=== PATIENT | female | born 1995 | race Caucasian/White ===

== ENCOUNTER 2021-12-28 15:18 | Outpatient (REF) | payer OTHER, SELFPAY ==
[2021-12-28 16:18] LABS: COVID-19 Test Negative (Negative); IDNOW Serial# 16C4AD1C
== END 2021-12-28 15:19 | disposition home or self-care (01) ==
LOC: HO.LAB 15:18
PROVIDERS: Visit Provider Internal Medicine
DX: Z20.822 Contact with and (suspected) exposure to COVID-19 (principal)
CPT/HCPCS: 87635; C9803

== ENCOUNTER 2022-11-14 11:48 | Emergency (ER) | payer OTHER, SELFPAY ==
[2022-11-14 11:51] VITALS: BP 150/80; PULSE 75; RESP 20; TEMP 36.8; O2SAT 97; BMI 37.9
[2022-11-14 12:02] VITALS: BP 155/110
--- NOTE | 2022-11-14 12:11 | PC.NURSE ---
Pt arrived via EMS, A&O X3, stated she has a Hx of anxiety and chronic fainting. VS WNL, denies any pain or discomfort at this time.
--- NOTE | 2022-11-14 13:04 | ED_ITS ---
HPI - General Adult General Chief complaint: General Medical Stated complaint: HIGH BP 127/84 PER EMS Time Seen by Provider: 11/14/22 12:56 Source: patient Mode of arrival: EMS Limitations: no limitations History of Present Illness HPI narrative: Patient comes emergency room via EMS after having a panic attack and having syncopal episode. Patient states that she receive a bad phone call earlier today which triggered her anxiety, then she went into a panic attack. Patient called her friend and was hoping that she would calm down. The patient reports that she was hyperventilating, and passed out, patient's friend who was still on the phone call 911. Patient states that she has had multiple panic attacks in the past and syncopal episodes have happened after hyperventilating. Patient states that she did not hit her head, did not lose consciousness, not on blood thinners. When EMS arrived, patient's blood pressure was high, patient initially declined to come to the hospital but she was convinced by the paramedics. When patient arrived, patient's blood pressure was 127/84. At this time, patient states she is asymptomatic, feeling well. Related Data Allergies Allergy/AdvReac Type Severity Reaction Status Date / Time cat dander [CATS] Allergy Unknown UNKNOWN Unverified 02/19/20 18:57 nickel [NICKEL] Allergy Unknown HIVES Unverified 02/19/20 18:57 Review of Systems Review of Systems: Constitutional : No Weight loss, No Fever, No Chills, No Night Sweats, No Fatigue, No Malaise ENT/Mouth : No Hearing loss, No Ear Pain, No Nasal Congestion, No Sinus Pain, No Hoarseness, No sore throat, No Rhinorrhea, No Swallowing Difficulty Eyes: No Eye Pain, No Swelling, No Redness, No Foreign Body, No Discharge, No Vision Changes Cardiovascular : No Chest Pain, No SOB, No Dyspnea on Exertion, No Orthopnea, No Edema, No Palpitations Respiratory : No Cough, No Sputum, No Wheezing, No Smoke Exposure, No Dyspnea Gastrointestinal : No Nausea, No Vomiting, No Diarrhea, No Constipation, No abdominal Pain, No Hematochezia, No Melena Genitourinary : no irregular bleeding, No Dysuria, No Urinary Frequency, No Hematuria, No Urinary Incontinence, No Urgency, No Flank Pain, No Urinary Flow Changes, No Hesitancy Musculoskeletal : No joint pain, No Myalgias, No Joint Swelling Skin : No Skin Lesions, No rash Neuro : No Weakness, No Numbness, No Paresthesias, No Loss of Consciousness, No Dizziness, No Headache Psych : Earlier today had a panic attack, no Depression, No SI/HI/AH/VH, No Social Issues, Heme/Lymph: No Bruising, No Bleeding,No Lymphadenopathy Endocrine : No Polyuria, No Polydipsia, No Temperature Intolerance [facility] Past Medical History Medical History (Updated 11/14/22 @ 13:09 by Claudia Seaman MD) Generalized anxiety disorder with panic attacks Social History Social History Advance Directives: No Advance Directives Information Provided: No Physical Exam ED Vital Signs: Vital Signs - 24 hr 11/14/22 11:51 Temperature 98.3 F Pulse Rate 75 Respiratory Rate 20 Blood Pressure 150/80 H Pulse Oximetry 97 Oxygen Delivery Method Room Air BMI result Body Mass Index 37.9 Const Other: Appearance: Alert. Oriented X3. No acute distress. Eyes: Pupils equal, round and reactive to light. ENT: Pharynx normal. Neck: Normal inspection. Neck supple. No lymph nodes noted. No crepitus CVS: Normal heart rate and rhythm. Pulses normal. Normal S1 and S2 Respiratory: No respiratory distress. Breath sounds normal. No Wheezing. No rales Abdomen: Soft and nontender. No rigidity. No distention. Skin: Skin warm and dry. Normal skin color. Normal skin turgor. Extremities: No lower extremity edema. No Lacerations. No Rash Neuro: Oriented X 3. No motor deficit. No sensory deficit. Moving all extremities. No slurred speech. CN 2 through 12 grossly intact Psych: calm, cooperative, normal affect Medical Decision Making Medical Decision Making MDM Narrative: -patient states that she feels completely back to baseline, denies any chest pain or shortness of breath. No anxiety. -I checked the patient's blood pressure, it was 116/56, patient feeling well. 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 Patient is willing to get an EKG prior to discharge. -patient's syncopal episode likely secondary to hyperventilating from the panic attack. -EKG my interpretation: Sinus bradycardia, heart rate 57, no ST segment depression revision, no T-wave inversion, QTC 434 Discharge Plan Discharge Clinical Impression: Panic attack, Hyperventilation-induced syncope Patient Disposition: Home, Self-Care Instructions: Panic Attack (ED) Additional Instructions: Please follow-up with your primary care physician tomorrow. If you have any worsening or new symptoms, please return to the emergency room or call 911
--- NOTE | 2022-11-15 12:12 | ECG_ITS ---
Test Reason : HYPTERSION Blood Pressure : / mmHG Vent. Rate : 057 BPM Atrial Rate : 057 BPM P-R Int : 154 ms QRS Dur : 088 ms QT Int : 446 ms P-R-T Axes : 006 051 038 degrees QTc Int : 434 ms Sinus bradycardia Otherwise normal ECG When compared with ECG of 27-FEB-2019 18:06, No significant change was found Referred By: Claudia Seaman Electronically Signed By:OSVALDO ZAIDI MD
== END 2022-11-14 14:34 | disposition home or self-care (01) ==
PROVIDERS: Emergency Provider Emergency Medicine
DX: F41.0 Panic disorder [episodic paroxysmal anxiety] (principal); R55 Syncope and collapse; R06.4 Hyperventilation; I10 Essential (primary) hypertension; Z79.899 Other long term (current) drug therapy
CPT/HCPCS: 93005; 99283

== ENCOUNTER 2025-03-09 13:12 | Outpatient (AMB) | payer OTHER, SELFPAY ==
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
[2025-03-09 13:19] VITALS: BP 138/78; PULSE 90; RESP 16; O2SAT 95; BMI 37.6
--- OUTSIDE RECORDS SUMMARY | 2025-03-09 15:39 | XMS_ITS ---
Author Name [facility] Organization Unknown Care Team Organization Name Specialty Phone Email Start Date End Da te [facility] JOE YE Primary Care [email or web address] 02/08/[address] [facility] Josue Alexander Primary Care 08/09/202201/[address] [facility] Bakari Santiago Primary Care 04/11/2022 4
--- OUTSIDE RECORDS SUMMARY | 2025-03-09 15:39 | XMS_ITS | Clinical Summary ---
Author Organization [address] 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 10/08/2023 Active EPINEPHrine (EpiPen 2-Hieu) 0.3 mg/0.3 mL injection Inject 0.3 mL (0.3 mg total) as directed if needed for anaphylaxis. 10/06/2022 Active ibuprofen (ADVIL,MOTRIN) 600 mg tablet Take 1 tablet (600 mg total) by mouth every 8 (eight) hours if needed for mild pain. 10/08/2023 Active propranoloL (INDERAL) 10 mg tablet Take 1 tablet (10 mg total) by mouth 1 (one) time each day if needed. ANXIETY 02/21/2023 Active sucralfate (CARAFATE) 100 mg/mL suspension Take 10 mL (1 g total) by mouth 4 (four) times a day (with meals and nightly). Take 1 hour before meals and at bedtime 1200 mL 11 04/09/2024 04/09/20 25 Active cetirizine (ZyrTEC) 10 mg capsuleIndicati ons:Seasonal allergic rhinitis due to pollen Take 1 capsule (10 mg total) by mouth 1 (one) time each day. 90 capsule 1 09/04/2024 Active cholecalciferol (VITAMIN D-3) 50 mcg (2,000 unit) tablet Take 1 tablet (2,000 Units total) by mouth 1 (one) time each day. 90 tablet 1 09/04/2024 Active pantoprazole (PROTONIX) 20 mg EC tablet TAKE 1 TABLET BY MOUTH EVERY DAY 90 tablet 1 09/16/2024 Active PARoxetine (PAXIL) 40 mg tablet Take 1 tablet (40 mg total) by mouth 1 (one) time each day in the morning. Active hydrOXYzine HCL (ATARAX) 10 mg tablet Take 1 tablet (10 mg total) by mouth 3 (three) times a day. 30 tablet 2 03/03/2025 Active Active Problems Problem Noted Date Diagnosed Date Syncope 11/14/2024 Assessment & Plan (11/18/2024 1:04 PM EDT): Patient with possible syncope. Etiology unclear though I think it is truly vasovagal syncope based on the circumstances and the characteristics of the events. Patient will be set up for a 30-day monitor rather than a Holter monitor to see if we can capture any of these episodes on EKG tracing while it happens. In the meantime she has been told to avoid noxious stimuli or painful stimuli since it may trigger a vagal event. But the majority of her episodes have characteristics that are most consistent with vasovagal syncope which I explained to her just needs to be treated by avoiding situations where of pain discomfort overheating and to stay well- hydrated wear compression socks Orders: Ambulatory referral to Cardiology Cardiac event monitor; Future Transthoracic echocardiogram (TTE) complete with PRN contrast, bubble, strain, and 3D order panel; Future Obesity (BMI 35.0-39.9 without comorbidity) 08/2024 Bipolar affective disorder (CMS/HCC V24, CMS/HCC V28) 03/17/2024 Overview (03/17/2024): Jimenez Sosa: Shannan Cervantes GERD (gastroesophageal reflux disease) Overview (03/17/2024): Prilosec Mood disorder ([facility]/HCC V24) 03/17/2024 Overview (03/17/2024): high risk behaviors with sex and drugs As of 11/14 taking Prazosin (Minipress) for nightmares, Zoloft, Trazodone, Singulair, Benadryl and Prilosec PTSD (post-traumatic stress disorder) 03/17/2024 Overview (03/17/2024): inpt psych hosp 10/13 at [facility] Class 2 obesity due to exces s calories with body mass index (BMI) of 37.0 to 37.9 in adult 03/17/2024 Elevated LDL cholesterol level 10/09/2022 Subclinical hyperthyroidism 10/09/2022 Marijuana use, continuous 10/06/2022 Passive suicidal ideations 10/06/2022 DUB (dysfunctional uterine bleeding) 09/12/2018 Insomnia 09/12/2018 ADHD (attention deficit hyperactivity disorder) 02/24/2010 Overview (03/17/2024): No longer on meds for ADHD meds, on Goldonna 11/13 Allergic rhinitis 02/24/2010 Overview (03/17/2024): Singulair and benadryl Encounters Date Type Department Care Team Description 03/03/2025 2:30 PM EDT Office Visit Adult Medicine [address] [phone] Mar Amor PA Vasovagal syncope (Primary Dx); Bipolar affective disorder, current episode mixed, current episode severity unspecified (CMS/HCC V24, CMS/HCC V28); Anxiety and depression 12/29/2024 2:30 PM EDT Office Visit Adult [address] [phone] Josue Alexander MD Vasovagal syncope (Primary Dx); Gastroesophageal reflux disease without esophagitis; Bipolar affective disorder, current episode mixed, current episode severity unspecified (CMS/HCC V24, [facility] V28) 12/09/2024 7:00 AM EDT Ancillary Procedure [facility] [address] [facility] [address] [place] [address] Syncope, unspecified syncope type; Syncope and collapse from Last 3 Months Immunizations Immunization Administration Dates Next Due DTaP (Infanrix) 6wks to less than 7yo ,01/02/1998,03/04/1997,09/02,1996 HPV, Quadrivalent 02/28/2011,02/24/2010,02/23/20 09 Hepatitis B Pediatric (Enger ix B; Recombivax HB) to less than 20 yo 06/23/1997,03/23/1997,1996 Influenza trivalent, 0.5mL, preservative free (Fluarix; FluLaval; Fluzone) ages 6mo and older (Afluria) 3 years and older 02/18/2024,07/19/2017,02/28/2011,02/24,02/22/2009,03/19/2008,03/05/2007 MMR, measles mumps and rubel la Live (Priorix; M-M-R II) 12mo and older 08/06/2001,11/16/1997 Meningococcal MCV4P 02/22/2009,07/19/2007 OPV 08/06/2001, 8,1996,08/02 Pfizer SARS-CoV-2 COVID-19, mRNA, LNP-S, preservative free 08/25/2021,08/04/2021 Pneumococcal conjugate 20 va lent (Prevnar 20, PCV 20) 2mo and older 02/18/2024 Tdap Tetanus diptheria acell ular pertussis (Boostrix; Adacel) 7yo and older 09/08/2016,11/02/2015,02/22/2009 Varicella live (Varivax) 12m o and older 01/07/2008,11/16/1997 Surgical History Surgery Date Site/Laterality Comments SECTION PROCEDURE: HISTORICAL DELIVERY; COMMENT: 12/14/2015 and 10/28/2016 SKIN GRAFT Medical History Medical History Date Comments Lack of normal physiological development, unspecified DX:Lack of normal physiologi chace development, unspecified; COMMENT: 01/09 Eczema DX:Eczema Bipolar affective disorder ([facility] V24, [facility] V28) ? Borderline DX:Bipolar affective disord er ([facility]); COMMENT: Jimenez Sosa: Shannan Cervantes ADHD (attention deficit hyperactivity disorder) DX:ADHD (attention deficit hyperactivity disorder); COMMENT: Adderall Clonidine Hospital admission due to so cial situation ? reason 07/16 DX:Hospital admission due to social situation; COMMENT: admitted at [facility] Mood disorder ([facility] V24) ODD DX:M ood disorder ([facility]); COMMENT: high risk behaviors with sex and drugs PTSD (post-traumatic stress disorder) DX:PTSD (post-traumatic stre ss disorder); COMMENT: inpt psych hosp 10/13 at [facility] High-risk sexual behavior per psych report DX:Hi gh-risk sexual behavior GERD (gastroesophageal reflu x disease) DX:GERD (gastroesophageal re flux disease); COMMENT: Prilosec Allergic rhinitis 02/24/2010 DX:Allergic rh initis; COMMENT: Singulair and benadryl Asthma 02/24/2010 DX:Asthma; COMME NT: On Singulair DUB (dysfunctional uterine bleeding) 09/12/2018 DX:DUB (dysfunctional uterin e bleeding) Hematochezia 02/24/2010 DX:Hematochezia History of syncope 03/16/2011 DX:History of syncope Insomnia 09/12/2018 DX:Insomnia Syncope Severe obesity (BMI 35.0-39. 9) with comorbidity ([facility] V24, [facility] V28) Family History Medical History Relation Name Comments Restless legs syndrome Father Colon cancer Mother Diabetes Mother Irritable bowel syndrome Mother htn Mother Other: adopted Other Relation Name Status Comments Father Mother Other Social History Tobacco Use Types Packs/Day Years Used Date Smoking Tobacco: Former Cigarettes Q uit: 2023 Smokeless Tobacco: Never Tobacco Cessation:Counseling Given: Not Answered Alcohol Use Standard Drinks/Week Comments Not Currently 0 (1 standard drink = 0.6 oz pur e alcohol) Housing Instability Answer Date Recorde d Are you worried that in the next 2 months you may not have stable housing? No 09/04/2024 Food Access & Nutrition Answer Date Rec orded Do you have access to a vari ety of food including fruits and vegetables? Yes 09/04/2024 Access to Healthcare Answer Date Record ed Within the last 3 months, ho w many times did you visit the emergency department for your medical care? 0 09/04/2024 Health Literacy Answer Date Recorded How often do you need to hav e someone help you when you read instructions, pamphlets, or other written material from your doctor or pharmacy? Never 09/04/2024 Caregiver: How often do you need to have someone help you when you read instructions, pamphlets, or other written material from your doctor or pharmacy? Not on file 09/04/2024 Financial Risk Answer Date Recorded How hard is it for you to pa y for the very basics like food, housing, medical care, and air conditioning / heating? Not very hard 09/04/2024 Transportation Answer Date Recorded Has the lack of transportati on kept you from meetings, work, or from getting things needed for daily living? No Has the lack of transportati on kept you from medical appointments or from getting medications? No 09/04/2024 Social Isolation Answer Date Recorded How often do you feel lonely or isolated from th ose around you? Never 09/04/2024 Food Risk Answer Date Recorded Within the past 12 months we worried whether our food would run out before we got money to buy more. Never true 09/04/2024 Within the past 12 months th e food we bought just didn't last and we didn't have money to get more. Never true 09/04/2024 Dependent Care Answer Date Recorded Do you need help finding or paying for care for your loved ones. For example, children's ministries director or elderly care for an older adult? No 09/04/2024 Education Answer Date Recorded Do you think completing more education or training, like finishing a GED, going to college, or learning a trade, would be helpful for you? N/A 09/04/2024 Employment and Income Answer Date Recor ded During the last four weeks, have you been actively looking for work? No 09/04/2024 Living Situation Answer Date Recorded What is your living situation? Unrecognized valu e 09/04/2024 Comments No Sex and Gender Information Value Date Recorded Sex Assigned at Not on file Legal Sex Female 11:29 PM EST Gender Identity Female 06/15/2023 10:38 AM EST Sexual Orientation Bisexual 06/15/2023 10 :38 AM EST Obstetrics History Last Filed Vital Signs Vital Sign Reading Time Taken Comments Blood Pressure 155/103 03/03/2025 2:51 PM EDT Pulse 88 03/03/2025 2:51 PM EDT Temperature 36.5 C (97.7 F) 03/03/2025 2:51 PM EDT Respiratory Rate 14 03/03/2025 2:51 PM EDT Oxygen Saturation 98% 11/18/2024 7:55 AM EDT Inhaled Oxygen Concentration - - Weight 113 kg (249 lb) 03/03/2025 2:51 PM EDT Height 170.2 cm (5' 7 ) 03/03/2025 2:51 PM EDT Body Mass Index 39 03/03/2025 2:51 PM EDT Plan of Treatment Upcoming Encounters Date Type Department Care Team (Late st Contact Info) Description 04/03/2025 8:40 AM EDT Office Visit [facility] [address] [place] [address] Lore Mendieta NP [address] [place] [address] [address] [place] [address] Health Maintenance Due Date Last Done Comments Hepatitis A Vaccines (1 of 2 - Risk 2-dose series) 2015 COVID-19 Vaccine ( season) 2025 08/25/2021, 08/04/2021 Influenza Vaccine (#1) 2025 , 07/19/2017, 02/28/2011, Additional history exists Social Influencers of Health Screening 09/04/2025 09/04/2024 Cervical Cancer Screening: Pap Smear 12/14/2025 12/14/2022, 12/14/2022 DTaP,Tdap,and Td Vaccines (9 - Td or Tdap) 09/08/2026 09/08/2016, 11/02/2015, 02/22/2009, Additional history exists Cholesterol Screening (Lipid Panel) 02/17/2029 02/18/2024, 02/18/2024 RSV Immunization Adult Patients (1 - 1-dose 75+ series) 2071 Hepatitis B Vaccines Completed 06/23/1997, 03/23/1997, 1996 IPV Vaccines Completed 08/06/2001, 06/1997, 1996, Additional history exists MMR Vaccines Completed 08/06/2001, 11/16/1997 Varicella Vaccines Completed 01/07/2008, 11/16/1997 Meningococcal ACWY Vaccine Aged Out 02/22/2009, No longer eligible based on patient's age to complete this topic HPV Vaccines Completed 02/28/2011, 02/03, 02/22/2009 Pneumococcal Vaccine: Pediatrics (0 to 5 Years) and At-Risk Patients (6 to 49 Years) Aged Out 02/18/2024 No longer eligible based on patient's age to complete this topic Depression Screening Completed 09/04/2024, 03/13/20 HIV Screening Completed 09/04/2024, 03/05, 02/18/2024, Additional history exists Hepatitis C Screening Completed 09/04/2024, 024 HIB Vaccines Aged Out No longer eligi ble based on patient's age to complete this topic Meningococcal B Vaccine Aged Out No l onger eligible based on patient's age to complete this topic RSV Immunization Patients Under 20 months Aged Out No longer eligible based on patient's age to complete this topic Procedures Procedure Name Priority Date/Time Associated Diagnosis Comments TRANSTHORACIC ECHOCARDIOGRAM (TTE) COMPLETE Routine 12/09/2024 7:42 AM EDT Syncope, unspecified syncope type Syncope and collapse HEPATITIS C ANTIBODY Routine 09/04/2024 10:02 AM EDT Screen for STD (sexually transmitted disease) HIV 1, 2 ANTIBODY, P24 ANTIGEN WITH REFLEX TO DIFFERENTIATION Routine 09/04/2024 10:02 AM EDT Screen for STD (sexually transmitted disease) HM DEPRESSION SCREENING Routine 03/13/2024 LIPID PANEL Routine 02/18/2024 HM HPV Routine 12/14/2022 from Last 3 Months or Most Recently Relevant to Health Maintenance Results * TRANSTHORACIC ECHOCARDIOGRAM (TTE) COMPLETE (12/09/2024 7:42 AM EDT) Left Atrium Minor [place] 4.5 cm CV PACS Left Atrium Major [place] 5.0 cm CV PACS LA Area Sys (A2C) 17 cm2 CV PACS LA Area Sys (A4C) 16 cm2 CV PACS LA Volume (BP) 49 mL CV PACS RA Area 14.9 cm2 CV PACS RA 2D Volume 39 mL CV PACS AV Mean Gradient 2 mmHg CV PACS Ao VTI 21.0 cm CV PACS AV Peak Caden 1.0 m/s CV PACS AV Peak Gradient 4 mmHg CV PACS AV Area Continuity Equation 3.3 cm2 CV PACS AV Area Peak Velocity 3.3 cm2 CV PACS Aortic Sinus Valsalva 3.5 cm CV PACS Ascending Aorta 3.4 cm CV PACS IVC Proximal 1.2 cm CV PACS IVSD 0.9 0.6 - 0.9 cm CV PACS LVIDD 4.5 3.8 - 5.2 cm CV PACS LVIDS 2.5 2.2 - 3.5 cm CV PACS LVOT Diameter 2.2 cm CV PACS LVOT Mean Grad 1 mmHg CV PACS LVOT Peak VTI 18.3 cm CV PACS LVOT Mean Caden 0.5 m/s CV PACS LVOT Peak Caden 0.8 m/s CV PACS LVOT Peak Gradient 3 mmHg CV PACS LVPWD 0.9 0.6 - 0.9 cm CV PACS MV E' Tissue Velocity Lateral 15 cm/s CV PACS MV E' Tissue Velocity Septal 10 cm/s CV PACS LVOT Area 3.8 cm2 CV PACS LVOT Stroke Volume 70 mL CV PACS E Wave Deceleration Time 215 119 - 242 ms CV PACS MV Peak A Caden 0.66 m/s CV PACS MV Peak E Caden 0.81 m/s CV PACS PV Acceleration Time 162 ms CV PACS PV Acceleration Time 162 ms CV PACS PV Peak Velocity 0.8 m/s CV PACS PV Peak Gradient 3 mmHg CV PACS RV Diastolic Basal Dimension 3.8 2.5 - 4.1 cm CV PACS RV S' 13 cm/s CV PACS TAPSE 26 mm CV PACS TR Peak Velocity 2.00 m/s CV PACS TR Peak Gradient 16 mmHg CV PACS E/E' Ratio Septal 8 CV PACS E/E' Ratio Averaged 7 CV PACS Relative Wall Thickness ratio 0.40 CV PACS LVOT:AV VTI Index 0.87 CV PACS FS 44 % CV PACS LV Mass 2D 133 g CV PACS LVOT flow 190 mL/s CV PACS AV Velocity Ratio 0.80 CV PACS E/A Ratio 1.2 CV PACS E/E' Ratio Lateral 5 CV PACS BSA 2.28 m2 CV PACS LA Volume Index (BP) 22 mL/m2 CV PACS LVIDD Index 2.05 cm/m2 CV PACS LVIDS Index 1.14 cm/m2 CV PACS LV Mass Index 2D 61 44 - 88 g/m2 CV PACS LVOT Stroke Index 32 mL/m2 CV PACS RA 2D Volume Index 18 15 - 27 mL/m2 CV PACS KAM Index (VTI) 1.51 cm2/m2 CV PACS KAM Index (Pk Caden) 1.51 cm2/m2 CV PACS Ascending Aorta Index 1.55 cm/m2 CV PACS Right Ventricular Peak Systolic Pressure 19 mmHg CV PACS Est. RA Pressure 3 mmHg CV PACS Anatomical Region Laterality Modality Ultrasound Narrative 12/09/2024 3:26 PM EDT Left ventricle cavity size is normal. Left ventricular systolic function is in the normal range with an ejection fraction of 55-60%. Normal wall thickness. Normal parameters of diastolic function. Right ventricle cavity is normal. Right ventricular systolic function is normal. The atria are normal in size. There is no significant valvular disease. There is mild pulmonic valve insufficiency. No prior echo for comparison. Left Ventricle Left ventricle cavity size is normal. Wall thickness is normal. Systolic function is normal with an ejection fraction of 55-60%. There are no regional LV wall motion abnormalities. There is no diastolic dysfunction. Right Ventricle Right ventricle cavity appears normal. Systolic function is normal. Left Atrium Left atrium volume index is normal. Right Atrium Right atrium cavity is normal. IVC/SVC RA pressures is estimated to be 3 mmHg (IVC diameter <21 mm and decreases >50% during inspiration). Mitral Valve The leaflets exhibit normal excursion. There is trace regurgitation. There is no evidence of mitral valve stenosis. Tricuspid Valve The leaflets exhibit normal excursion. There is trace regurgitation. There is no evidence of tricuspid valve stenosis. Aortic Valve The aortic valve is trileaflet. There is trace regurgitation. There is no evidence of aortic valve stenosis. Pulmonic Valve Visualized portions of the pulmonic valve appear normal. There is mild pulmonic valve regurgitation. There is no evidence of pulmonic valve stenosis. Ascending Aorta The aorta appears normal in size. Pericardium Pericardium appears normal. Study Details Overall the study quality was adequate. us Matthias Gaming MD CV ECHO PROCEDURES Final Resul t * Hepatitis C antibody (09/04/2024 10:02 AM EDT) Pathologist [facility] [place] Hepatitis C Antibody Negative Negative LAB CHEMISTRY METHOD 09/04/2024 5:31 PM EDT [facility] Blood Venous blood specimen / Unknown Venipuncture / Unknown 09/04/2024 10:02 AM EDT 09/04/2024 10:02 AM EDT Josue Alexander MD LAB BLOOD ORDERABLES Final Result [facility] [address] [place] [address], * HIV 1,2 antibody, p24 antigen with reflex to differentiation (09/04/2024 10:02 AM EDT) [facility] HIV Combo AB/AG Negative Negative LAB CHEMISTRY METHOD 09/04/2024 5:32 PM EDT [facility] Blood Venous blood specimen / Unknown Venipuncture / Unknown 09/04/2024 10:02 AM EDT 09/04/2024 10:02 AM EDT Narrative [facility] - 09/04/2024 5:32 PM EDT This assay is a 4th generation assay allowing for earlier detection of HIV infection by detecting the presence of the HIV-1 p24 antigen as well as the traditional antibodies to HIV type 1 (including group O) and type 2. Use of a 4th generation assay is the current CDC recommendation for HIV screening. Josue Alexander MD LAB BLOOD ORDERABLES Final Result [facility] ([facility]) [facility] [address] [place] [address], [place] [phone] * Depression Screening (03/13/2024) Pathologist [facility] Depression Screening abstracted Historical Provider HEALTH MAINTENANCE Final Result * (ABNORMAL) Lipid panel (02/18/2024) [facility] LDL/HDL Ratio 5(A) 0 - 4 Triglycerides 172(A) 0 - 150 mg/dL Cholesterol 184 0 - 200 mg/dL HDL 37(A) >=40 mg/dL LDL Cholesterol 113(A) 0 - 100 mg/dL Blood Venous blood specimen / Unknown Historical Provider LAB BLOOD ORDERABLES Noemy l Result * Cervical Cancer Screening: HPV (12/14/2022) [facility] Cervical Cancer Screening: HPV negative, abstracted Historical Provider HEALTH MAINTENANCE Final Result from Last 3 Months or Most Recently Relevant to Health Maintenance Insurance [facility] [facility] Care Teams 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
== END 2025-03-09 15:19 | disposition home or self-care (01) ==
LOC: HO.HSM 13:12
PROVIDERS: Visit Provider Nurse Practitioner
DX: R55 Syncope and collapse (principal)
CPT/HCPCS: 99204

== ENCOUNTER → 2025-03-09 13:12 | Outpatient (BNVA) | payer OTHER, SELFPAY | PROVIDERS: Visit Provider Nurse Practitioner | DX: R55 Syncope and collapse (principal) | CPT/HCPCS: 99202 ==